=== PATIENT | female | born 1955 | race Caucasian/White ===

== ENCOUNTER → 2021-03-26 12:23 | Outpatient (CLI) | payer BC, SELFPAY | PROVIDERS: PCP Family Medicine; Visit Provider Nurse Practitioner | DX: U07.1 COVID-19 (principal) | CPT/HCPCS: C9803; U0003; U0005 ==

== ENCOUNTER 2021-03-29 09:59 | Outpatient (CLI) | payer BC, SELFPAY ==
[2021-03-29] VITALS (9 sets, daily range): BP systolic 111–163; BP diastolic 71–94; PULSE 54–92; RESP 15–20; TEMP 36.4–36.7; O2SAT 93–98; BMI 29.9
--- NOTE | 2021-03-29 10:51 | PC.NURSE ---
pt reports feeling dizzy, hot, nauseated. Infusion stopped at this time. notifying pharmacy
--- NOTE | 2021-03-29 10:58 | PC.NURSE ---
martyrn spoke with Dr. Jimenez at this time who is adult probation officer for Dr. Martinez, notified him of pt symptoms that began approx 10 minutes into infusion of Regen Cov. Stated to him that we are giving my medications per standing orders for infusion reaction. Pharmacy has also recommended pt get Pepcid IV. Dr. jimenez gave verbal order for Pepcid 20 mg IV once. will continue to monitor pt.
--- NOTE | 2021-03-29 11:13 | PC.NURSE ---
pt laying back in bed at at this time, cool rags on head and neck. Pt reports she is feeling better. VS cycling q15 min. Call light within reach will continue to monitor. ER MD is aware of pt situation
--- NOTE | 2021-03-29 12:02 | PC.NURSE ---
pt reports she is feeling much better, asking when she can go home.
--- NOTE | 2021-03-29 12:15 | PC.NURSE ---
spoke with Dr. Bagley, current v/s given to him, pt states she is feeling better and asking when she can go home. Dr. Bagley states pt is okay to go home, requests that pt call and make a telehealth appt with him tomorrow.
--- NOTE | 2021-03-29 19:20 | PC.NURSE ---
pt to follow up with Dr. Bagley tomorrow via telehealth appt, pt verbalized understanding to call and make appt. Advised pt to come to ER for any return of symptoms, SOA, CP, concerning symptoms. Pt verbalized understanding.
== END 2021-03-29 12:40 | disposition home or self-care (01) ==
PROVIDERS: PCP Family Medicine; Referring Provider Family Medicine; Visit Provider Family Medicine
DX: U07.1 COVID-19 (principal)
CPT/HCPCS: 96365

== ENCOUNTER 2023-07-18 10:56 | Emergency (ER) | payer MEDICARE, SELFPAY ==
[2023-07-18 11:25] VITALS: BP 131/88; PULSE 79; RESP 19; TEMP 37; O2SAT 98; BMI 35.0
--- NOTE | 2023-07-18 11:42 | ED_ITS ---
Discharge Plan Disposition Patient Disposition: Home, Self-Care Condition: Good Prescriptions Prescriptions: New methylprednisolone [Medrol (Iker)] 4 mg tablets,dose pack See Rx Instructions .Route .COMPLEX 6 Days Qty: 21 0RF Rx Instructions: taper pack; cefdinir 300 mg capsule 300 mg PO BID Qty: 20 0RF guaifenesin [Mucinex] 600 mg tablet extended release 12hr 600 mg PO BID PRN (Reason: cough) Qty: 20 0RF No Action torsemide 5 mg tablet 5 mg PO DAILY valsartan 320 mg tablet 320 mg PO DAILY montelukast 10 mg tablet 10 mg PO DAILY Prempro 0.625-2.5 mg tablet 1 tab PO DAILY Referrals Follow up/Referrals: Norris Martinez MD [Primary Care Provider] - See instructions Activity Restrictions/Add. Instructions Additional Instructions/Restrictions: * Start antibiotic today. Be sure to complete entire prescription even if feeling better * Monitor temp. Tylenol every 4 hours as needed and / or ibuprofen every 6 hours as needed ( As long as your primary care physician has told you that it ok to take both. For fever/aches/pains ER if no less than 101 despite Tylenol or Motrin * Humidifier/vaporizer or hot steamy shower * Mucinex for your cough Be sure to drink lots of water. *Start steroid today. Helps with inflammation therefore, cough and wheezing. Follow directions on the package. Reviewed side effects. Patient reports taking them before. Follow up IMMEDIATELY for new or worsening of symptoms OR no noticeable improvement over the next 48-72 hours. 911 immediately for any life threatening symptoms such as chest pain or difficulty breathing Clinical Impressions Clinical Impression: Bronchitis Sinusitis Qualifiers: Sinusitis location: unspecified location Chronicity: unspecified Qualified Code(s): J32.9 - Chronic sinusitis, unspecified Instructions Patient Instructions: Acute Bronchitis, DI for Sinusitis Discharge ED Provider: Kamila Calhoun [facility] General Stated complaint: runny nose,cough Mode of Arrival: Ambulatory Source of Information: Patient Limitations: No Limitations Time Seen by Provider: 07/18/23 11:42 Description of Symptoms (Recalled from Triage Doc. by RN): PATIENT C/O WHEEZY COUGH AND SINUS PRESSURE X 2 DAYS HEENT Symptoms (Recalled from RN notes): Yes Resp Symptoms (Recalled from RN notes): Yes Skin Symptoms (Recalled from RN notes): No MS Symptoms (Recalled from RN notes): No Functional Status (Recalled from RN notes): WNL History of Present Illness Provider Complaint: Patient states that she has been having sinus pain and pressure for a couple of days and feels like it is trying to move down into her lungs and she has asthma and this morning she had a wheezy cough States that she feels like it is trying to move into her chest so she came in to get a steriod and some antibiotics before it moves into her chest area and gets worse Related Data Home Medications Medication Instructions Recorded Confirmed conj estrogen-medroxyprogesterone 1 tab PO DAILY 07/18/23 07/18/23 0.625 mg-2.5 mg tablet (Prempro) montelukast 10 mg tablet 10 mg PO DAILY 07/18/23 07/18/23 torsemide 5 mg tablet 5 mg PO DAILY 07/18/23 07/18/23 valsartan 320 mg tablet 320 mg PO DAILY 07/18/23 07/18/23 Previous Rx's Medication Instructions Recorded cefdinir 300 mg capsule 300 mg PO BID #20 caps 07/18/23 guaifenesin 600 mg tablet, 600 mg PO BID PRN cough #20 tabs 07/18/23 extended release 12 hr (Mucinex) methylprednisolone 4 mg tablets in See Rx Instructions .Route 07/18/23 a dose pack (Medrol (Iker)) .COMPLEX 6 days #21 tabs Allergies Allergy/AdvReac Type Severity Reaction Status Date / Time azithromycin Allergy Unknown Verified 03/29/21 10:07 allergy reaction Worker's Comp Is this a Worker's Comp case?: No [facility] Disclaimer: The information contained in this section may have been updated after the patient was seen, as this information can be updated by other users. Medical History (Updated 07/18/23 @ 11:53 by Kamila Calhoun APRN) Asthma Hypertension Surgical History (Updated 07/18/23 @ 11:30 by Gayatri Dunbar RN) History of cholecystectomy History of tonsillectomy Social History Smoking Status: Unknown if ever smoked alcohol intake: never current occupational status: employed Travel in the last 8 weeks: None ROS Obtained: Yes All systems reviewed & no additional complaints except as documented and Yes Systems reviewed as appropriate & no additional complaints except as documented Constitutional Constitutional: Reports system reviewed and no additional complaints, except as documented, Reports as per HPI and Reports headache(s) ENT Ears, Nose, Mouth, and Throat: Reports system reviewed and no additional complaints, except as documented, Reports as per HPI, Reports headache(s), Reports sinus pain and Reports sinus pressure Cardiovascular Cardiovascular: Reports system reviewed and no additional complaints, except as documented and Reports as per HPI Respiratory Respiratory: Reports system reviewed and no additional complaints, except as documented, Reports as per HPI, Denies shortness of breath, Reports chest congestion, Reports cough and Reports wheezing (earlier this morning) Musculoskeletal Musculoskeletal: Reports system reviewed and no additional complaints, except as documented and Reports as per HPI Integumentary/Breasts Skin/Breast: Reports system reviewed and no additional complaints, except as documented and Reports as per HPI Neurologic Neurologic: Reports headache(s) Allergic/Immunologic Allergic/Immunologic: Reports wheezing (earlier this morning) Physical Exam General General appearance: alert and in no apparent distress ENT ENT exam: Present mucous membranes moist Expanded ENT Exam Nose exam: Present sinus tenderness Throat exam: Present other (Pharyngeal erythema noted with PND) Respiratory Respiratory exam: Present normal lung sounds bilaterally; Absent respiratory distress or wheezes Cardiovascular Cardiovascular exam: Present regular rate, normal rhythm and normal heart sounds Neurological Exam Neurological exam: Present alert, oriented X3 and normal gait Medical Decision Making Chan Inquiry Pt receiving controlled substance: No Chan was queried for this patient: No Vital Signs: 07/18/23 11:25 Temperature 98.6 F Temperature Source Oral Pulse Rate [Left Brachial] 79 Respiratory Rate 19 Blood Pressure [Left Arm] 131/88 Blood Pressure Mean [Left Arm] 102 Blood Pressure Source [Left Arm] Automatic Cuff Blood Pressure Position [Left Arm] Sitting 02 Sat by Pulse Oximetry 98 Oxygen Delivery Method Room Air
[2023-07-18 11:50] VITALS: BP 130/78; PULSE 63; RESP 19; TEMP 36.7; O2SAT 96
== END 2023-07-18 11:56 | disposition home or self-care (01) ==
PROVIDERS: Emergency Provider Nurse Practitioner; PCP Family Medicine
DX: J20.9 Acute bronchitis, unspecified (principal); J01.90 Acute sinusitis, unspecified; R06.2 Wheezing; R51.9 Headache, unspecified; R09.81 Nasal congestion; R05.9 Cough, unspecified; R09.89 Other specified symptoms and signs involving the circulatory and respiratory systems; I10 Essential (primary) hypertension
CPT/HCPCS: 99204; 99212; G0463

== ENCOUNTER 2024-06-15 09:48 | Emergency (ER) | payer MEDICARE, SELFPAY ==
[2024-06-15 10:45] VITALS: BP 190/108; PULSE 94; RESP 21; TEMP 36.8; O2SAT 97; BMI 33.4
--- NOTE | 2024-06-15 11:15 | ED_ITS ---
Discharge Plan Disposition Patient Disposition: Home, Self-Care Condition: Good Prescriptions Prescriptions: New benzonatate 100 mg capsule 100 mg PO TIDP PRN (Reason: Cough) Qty: 30 0RF cefdinir 300 mg capsule 300 mg PO BID 10 Days Qty: 20 0RF methylprednisolone 4 mg Tablets,Dose Pack 4 mg PO DIRECTED 6 Days Qty: 21 0RF Rx Instructions: Take 1 pack as directed for 6 days No Action torsemide 5 mg tablet 5 mg PO DAILY valsartan 320 mg tablet 320 mg PO DAILY montelukast 10 mg tablet 10 mg PO DAILY Prempro 0.625-2.5 mg tablet 1 tab PO DAILY Referrals Follow up/Referrals: Norris Martinez MD [Primary Care Provider] - See instructions Activity Restrictions/Add. Instructions Additional Instructions/Restrictions: Drink plenty of fluids. Take tylenol or ibuprofen for pain or fever. Take the medications as directed. Follow up with your regular doctor. GO TO THE ER FOR ANY WORSENING SYMPTOMS Don't start the oral steroids (medrol dose pack) until tomorrow since you had the shot here Clinical Impressions Clinical Impression: Sinusitis Qualifiers: Sinusitis location: unspecified location Chronicity: unspecified Qualified C ode(s): J32.9 - Chronic sinusitis, unspecified Instructions Patient Instructions: Sinusitis, DI for Sinusitis, Methylprednisolone, Cefdinir Print Language Print Language: Welsh Discharge ED Provider: Alexandre Cleaning [facility] General Stated complaint: cough, sinus pressure, wheezing Mode of Arrival: Ambulatory Source of Information: Patient Limitations: No Limitations Time Seen by Provider: 06/15/24 11:10 Description of Symptoms (Recalled from Triage Doc. by RN): PATIENT C/O COUGH, SNEEZING, SINUS CONGESTION AND HEADACHE THAT STARTED Thursday Symptoms (Recalled from RN notes): Yes Resp Symptoms (Recalled from RN notes): Yes Skin Symptoms (Recalled from RN notes): No MS Symptoms (Recalled from RN notes): No Functional Status (Recalled from RN notes): WNL Related Data Home Medications ?Medication ?Instructions ?Recorded ?Confirmed conj estrogen-medroxyprogesterone 1 tab PO DAILY 06/15/24 06/15/24 0.625 mg-2.5 mg tablet (Prempro) montelukast 10 mg tablet 10 mg PO DAILY 06/15/24 06/15/24 torsemide 5 mg tablet 5 mg PO DAILY 06/15/24 06/15/24 valsartan 320 mg tablet 320 mg PO DAILY 06/15/24 06/15/24 Previous Rx's ?Medication ?Instructions ?Recorded benzonatate 100 mg capsule 100 mg PO TIDP PRN Cough #30 caps 06/15/24 cefdinir 300 mg capsule 300 mg PO BID 10 days #20 caps 06/15/24 methylprednisolone 4 mg tablets in 4 mg PO DIRECTED 6 days #21 tabs 06/15/24 a dose pack Allergies Allergy/AdvReac Type Severity Reaction Status Date / Time azithromycin Allergy Unknown Verified 03/29/21 10:07 allergy reaction Worker's Comp Is this a Worker's Comp case?: No [facility] Disclaimer: The information contained in this section may have been updated after the patient was seen, as this information can be updated by other users. Medical History (Updated 06/15/24 @ 11:53 by Alexandre Cleaning APRN) Asthma Hypertension Surgical History (Updated 07/18/23 @ 11:30 by Gayatri Dunbar RN) History of tonsillectomy History of cholecystectomy Social History (Updated 07/18/23 @ 11:53 by Kamila Calhoun APRN) Smoking Status: Unknown if ever smoked alcohol intake: never current occupational status: employed Travel in the last 8 weeks: None ROS Obtained: Yes All systems reviewed & no additional complaints except as documented Constitutional Constitutional: Reports poor appetite Eyes Eyes: Reports system reviewed and no additional complaints, except as documented ENT Ears, Nose, Mouth, and Throat: Reports as per HPI Cardiovascular Cardiovascular: Reports system reviewed and no additional complaints, except as documented and Denies chest pain Respiratory Respiratory: Denies shortness of breath, Denies chest congestion, Reports cough, Denies stridor and Denies wheezing Gastrointestinal Gastrointestingal: Reports system reviewed and no additional complaints, except as documented; Denies abdominal pain, diarrhea or vomiting Musculoskeletal Musculoskeletal: Reports system reviewed and no additional complaints, except as documented and Denies arthralgias Integumentary/Breasts Skin/Breast: Reports system reviewed and no additional complaints, except as documented and Denies rash Neurologic Neurologic: Denies paresthesias Allergic/Immunologic Allergic/Immunologic: Denies wheezing Physical Exam General General appearance: alert and in no apparent distress Eye Eye exam: Present normal appearance, PERRL and EOMI ENT ENT exam: Present mucous membranes moist and normal external ear exam Expanded ENT Exam External ear exam: Present normal external inspection TM/Canal exam: Bilateral TM: erythema and bulging Nose exam: Absent sinus tenderness Nasal speculum exam: Bilateral: normal Mouth exam: Present normal external inspection; Absent drooling Teeth exam: Present normal inspection Throat exam: Present tonsillar erythema and tonsillomegaly Neck Neck exam: Present normal inspection, full ROM and trachea midline; Absent tenderness, lymphadenopathy or thyromegaly Chest Chest inspection: Present normal inspection and symmetric chest wall rise; Absent tenderness or rash Respiratory Respiratory exam: Present normal lung sounds bilaterally; Absent respiratory distress, wheezes, stridor or accessory muscle use Cardiovascular Cardiovascular exam: Present regular rate, normal rhythm and normal heart sounds Abdominal Exam Abdominal exam: Present soft; Absent distention, tenderness, guarding, rebound or rigidity Extremities Exam Extremities exam: Present normal inspection, full ROM and normal capillary refill; Absent tenderness or calf tenderness Back Exam Back exam: Present normal inspection and full ROM; Absent tenderness Neurological Exam Neurological exam: Present alert and oriented X3 Psychiatric Psychiatric exam: Present normal affect and normal mood Skin Skin exam: Present warm, dry, intact and normal color Lymphatic Lymphatic Findings: no adenopathy Medical Decision Making Medical Records Medical records reviewed: No I reviewed the patient's medical records. Screening: Per USPSTF and CDC recommendations, given the prevalence of disease in our region, it is our hospital?s policy to screen for HIV and viral Hepatitis for all patients aged 18 and over and those with ongoing risk factors. Chan Inquiry Pt receiving controlled substance: No Vital Signs: 06/15/24 10:45 Temperature 98.2 F Temperature Source Oral Pulse Rate [Left Brachial] 94 H Respiratory Rate 21 Blood Pressure [Left Arm] 190/108 H Blood Pressure Mean [Left Arm] 135 Blood Pressure Source [Left Arm] Automatic Cuff Blood Pressure Position [Left Arm] Sitting 02 Sat by Pulse Oximetry 97 Oxygen Delivery Method Room Air Lab Data Lab results reviewed: Yes I reviewed the patient's lab results.
[2024-06-15 11:41] VITALS: BP 190/108; PULSE 94; RESP 21; TEMP 36.8; O2SAT 97
[2024-06-15] MEDS: DEXAMETHASONE 4MG/ML 1ML VIAL 8 MG IM (11:41)
== END 2024-06-15 11:57 | disposition home or self-care (01) ==
PROVIDERS: Emergency Provider Nurse Practitioner Family; PCP Family Medicine
DX: J32.9 Chronic sinusitis, unspecified (principal); R05.9 Cough, unspecified; R09.81 Nasal congestion; R51.9 Headache, unspecified; R06.2 Wheezing; R06.7 Sneezing
CPT/HCPCS: 96372; 99212; G0381; J1100